=== PATIENT | male | born 1995 | race American Indian/Alaskan Native ===

== ENCOUNTER 2018-06-22 23:41 | Emergency (ER) | payer SELFPAY ==
[2018-06-23 00:01] VITALS: RESP 20
--- NOTE | 2018-06-23 00:15 | C.PDOC ---
History Of Present Illness Patient complains of right ankle pain after twisting and fall when landing from jump during basketball game. Patient states he cannot bear weight secondary to the pain. He did not take any medications. Denies other injury Time Seen by Provider: 06/23/18 00:07 Chief Complaint (Nursing): Lower Extremity Problem/Injury History Per: Patient History/Exam Limitations: no limitations Onset/Duration Of Symptoms: Hrs Current Symptoms Are (Timing): Still Present Past Medical History Reviewed: Historical Data, Nursing Documentation, Vital Signs Vital Signs: Last Vital Signs Temp 99.7 F H 06/23/18 01:37 Pulse 86 06/23/18 01:37 Resp 20 06/23/18 01:37 BP 151/80 H 06/23/18 01:37 Pulse Ox 95 06/23/18 01:37 - Medical History PMH: No Chronic Diseases Surgical History: Appendectomy Family History: States: No Known Family Hx - Social History Hx Alcohol Use: No Hx Substance Use: No Review Of Systems Except As Marked, All Systems Reviewed And Found Negative. Musculoskeletal: Positive for: Foot Pain (right ankle pain and swelling) Skin: Negative for: Lesions Neurological: Negative for: Weakness, Numbness, Incoordination Physical Exam - Physical Exam Appears: Well, Non-toxic, No Acute Distress Skin: Warm, Dry, No Rash Head: Atraumatic, Normacephalic Eye(s): bilateral: Normal Inspection Oral Mucosa: Moist Neck: Normal ROM Extremity: Tenderness (under lateral malleolus to the right ankle), Capillary Refill (< 2 sec), No Deformity, Swelling (moderate swelling below lateral malleolus of right ankle) Pulses: Left Dorsalis Pedis: Normal, Right Dorsalis Pedis: Normal Neurological/Psych: Oriented x3, Normal Speech ED Course And Treatment O2 Sat by Pulse Oximetry: 98 (RA) Pulse Ox Interpretation: Normal Medical Decision Making Medical Decision Making: Impression: Ankle injury Plan: * Xray ankle * Ice pack * Motrin Progress: Xray viewed by me shows no acute fracture. CP applied aircast and patient instructed on crutch walking. Recommend rest ice elevation and NSAID for pain. Patient stable for discharge and given follow up information Disposition Counseled Patient/Family Regarding: Diagnosis, Need For Followup, Rx Given - Disposition Referrals: Dee Dee Cedeno DPM [Staff Provider] - Jethro Gonzalez III, MD [Staff Provider] - Disposition: HOME/ ROUTINE Disposition Time: 01:07 Condition: STABLE Additional Instructions: Your xray was normal, no fracture. Please apply ice to area 15 minutes three times a day. Take Motrin as needed for pain every 6 hours, with food to not upset stomach. Follow up with orthopedic or podiatry if pain persists over one week. Prescriptions: Ibuprofen [Motrin] 600 mg PO Q8 #30 tab Instructions: Ankle Sprain (DC) Forms: [employer] (Nepalese) - POA Present On Arrival: Falls Or Trauma (ankle injury) - Clinical Impression Clinical Impression: Ankle sprain - PA / [employer] / Resident Statement MD/DO has reviewed & agrees with the documentation as recorded. - Scribe Statement The provider has reviewed the documentation as recorded by the Scribe (Skyla Gregory) All medical record entries made by the Scribe were at my direction and personally dictated by me. I have reviewed the chart and agree that the record accurately reflects my personal performance of the history, physical exam, medical decision making, and the department course for this patient. I have also personally directed, reviewed, and agree with the discharge instructions and disposition.
[2018-06-23 01:38] VITALS: BP 151/80; PULSE 86; TEMP 99.7
[2018-06-23 02:11] VITALS: O2SAT 98
--- NOTE | 2018-06-23 08:25 | RAD ---
Date of service: 06/23/2018 PROCEDURE: Right Ankle Radiographs. HISTORY: pain lateral, s.p basketball injury COMPARISON: None FINDINGS: BONES: Normal. No fracture. JOINTS: Normal. No significant appear osteoarthritis. Ankle mortise maintained. Talar dome intact SOFT TISSUES: Lateral soft tissue swelling OTHER FINDINGS: None. IMPRESSION: Lateral perimalleolar soft tissue swelling. No fracture appreciated.
== END 2018-06-23 01:46 | disposition home or self-care (01) ==
LOC: C.ER 23:41
DX: S93.401A Sprain of unspecified ligament of right ankle, initial encounter (principal); X50.1XXA Overexertion from prolonged static or awkward postures, initial encounter; Y93.67 Activity, basketball; Y92.39 Other specified sports and athletic area as the place of occurrence of the external cause